=== PATIENT | female | born 1995 | race Caucasian/White ===

== ENCOUNTER → 2016-08-01 | Outpatient (CLI) | payer BC ==
[~2016-08-01] MED LIST: ACET-749 PO; AMPH25CA PO; BCPILLS PO; FEXO1TAB49 PO
[2016-08-04 11:39] LABS: CHLAMYDIA TRACH RNA*** NOT DETECTED (NOT DETECTED); GC (NEIS GONORRHOEAE)RNA** NOT DETECTED (NOT DETECTED)
== END | disposition home or self-care (01) ==
LOC: C.LABSPEC 17:32
PROVIDERS: ATTEND Physician Assistant
DX: N89.8 Other specified noninflammatory disorders of vagina (principal)

== ENCOUNTER 2016-12-15 04:00 | Emergency (ER) | payer BC ==
[~2016-12-15] VITALS: Ht 167.6 cm; Wt 80.0 kg
[~2016-12-15 04:00] MED LIST changes: -AMPH25CA PO; -BCPILLS PO; -FEXO1TAB49 PO
[2016-12-15 04:04] VITALS: BP 111/70; PULSE 107; TEMP 36.8; O2SAT 96; Ht 167.6 cm; Wt 80.0 kg
[2016-12-15] MEDS ORDERED: BCPILLS PO (04:30)
[2016-12-15] MEDS ORDERED: AMPH25CA PO (04:30)
[2016-12-15] MEDS ORDERED: FEXO1TAB49 PO (04:30)
--- NOTE | 2016-12-15 06:49 | DIAGNOSTIC IMAGING REPORT ---
L FOOT MIN 3 VIEWS ROUTINE CLINICAL HISTORY: Left foot pain status post trauma COMPARISON: None. DISCUSSION: No acute fractures or dislocations are visualized. There is mild cortical thickening involving the midshaft of the second metatarsal. This is likely chronic stress related basis. IMPRESSION: 1. No acute fractures or dislocations 2. Mild cortical thickening involving the second metatarsal, likely on a chronic stress related basis Electronically signed by: Mckay Guaman M.D. 12/15/2016 6:47 AM Dictated Date/Time: 12/15/2016 6:47 AM
--- NOTE | 2016-12-15 06:54 | DIAGNOSTIC IMAGING REPORT ---
L ANKLE MIN 3 VIEWS ROUTINE CLINICAL HISTORY: Left ankle pain status post trauma COMPARISON: None. DISCUSSION: No acute fractures or dislocations are visualized. IMPRESSION: No acute fractures or dislocations are visualized. Electronically signed by: Mckay Guaman M.D. 12/15/2016 6:53 AM Dictated Date/Time: 12/15/2016 6:52 AM
--- NOTE | 2016-12-15 07:20 | EMERGENCY ROOM VISIT NOTE ---
History Report prepared by Joyce: Lola Mcneal Under the Supervision of: Dr. Lucita Huff M.D. First contact with patient: 04:08 Chief Complaint: FOOT PAIN Stated Complaint: LT FOOT INJURY History of Present Illness The patient is a 21 year old female who presents to the Emergency Room with complaints of an episode of foot pain starting a few hours ago. The patient states that she was at a [employer] and was walking down the stairs when she stepped wrong. She reports that she instantly got pain all throughout her foot and cannot walk on it. The patient states that the pain is worse with movement. She states that she took Advil with some relief. She notes that she was wearing converse shoes. She admits she was drinking. The patient denies any falls, trauma, and chance of . She notes she takes Adderall and Control. Source of History: patient Onset: a few hours ago Position: foot Timing: other (episode) Modifying Factors (Worsening): movement Modifying Factors (Relieving): other (Advil) Note: The patient denies any falls, trauma, and chance of . Review of Systems See HPI for pertinent positives & negatives. A total of 6 systems reviewed and were otherwise negative. Past Medical & Surgical Surgical Problems: (1) H/O wisdom tooth extraction Family History Patient reports no known family medical history. Social History Smoking Status: Never Smoker Alcohol Use: occasionally Marital Status: single Housing Status: lives with roommate Occupation Status: [employer] Current/Historical Medications Scheduled Amphetamine-Dextroamphetamine 25MG (Adderall Xr 25MG), 25 MG PO DAILY Control Pills ( Control Pills), 1 TAB PO DAILY Fexofenadine Hcl (Donna Allergy), 1 TAB PO DAILY Allergies Coded Allergies: POLLEN (Verified Allergy, Intermediate, ITCHY EYES, SNEEZING, RUNNY NOSE, 12/15/16) Physical Exam Vital Signs Date Time Temp Pulse Resp B/P (MAP) Pulse Ox O2 Delivery O2 Flow Rate FiO2 12/15/16 04:04 36.8 107 20 111/70 96 Room Air Physical Exam Vital signs reviewed. General: Well-appearing, in no significant distress. Musculoskeletal: Atraumatic, no peripheral edema. Tender to palpation over the fifth metatarsal proximally. Tender over the first metatarsal distally. no significant swelling or ecchymosis is appreciated. Neurologic: Patient awake alert and oriented x 3 Skin: Warm, dry, no rash, atraumatic. Medical Decision & Procedures ER Provider Diagnostic Interpretation: Radiology results as stated below per my review and radiologist interpretation: ANKLE AND FOOT 3 VIEWS: Findings: The results were interpreted by me. Negative for acute fracture or dislocation. ED Course 0418: Past medical records reviewed. The patient was evaluated in room B10. A complete history and physical examination was performed. 0507: Upon reevaluation, the patient appeared to have improvement of her symptoms. I discussed findings with the patient. She verbalized agreement of the treatment plan. The patient was discharged home. Medical Decision Etiologies such as fracture, dislocation, neurovascular compromise, compartment syndrome, soft tissue injury, as well as others were entertained. This pt was evaluated and appeared to be in no distress. XR of the left foot and ankle are negative for acute fracture to my interpretation. Pt was placed in a walking shoe. She was advised to f/u with PCP if symptoms persist for repeat imaging. She will use ibuprofen for pain. Pt will return to the ED for worsening of symptoms or any medical concerns. Impression Primary Impression: Sprain of left foot Scribe Attestation The scribe's documentation has been prepared under my direction and personally reviewed by me in its entirety. I confirm that the note above accurately reflects all work, treatment, procedures, and medical decision making performed by me. Departure Information Dispostion Home / Self-Care Referrals No Doctor, Assigned (PCP) Forms HOME CARE DOCUMENTATION FORM, IMPORTANT VISIT INFORMATION Patient Instructions My [facility] Additional Instructions Diagnosis: Left foot sprain Ibuprofen 600 mg every 6 hours as needed for pain with food. Ice and elevate intermittently for the next 24 hours. If pain persists, follow-up with orthopedic surgery or your primary care physician for repeat imaging. Return to the emergency department for worsening of symptoms or any medical concerns.
== END 2016-12-15 05:04 | disposition home or self-care (01) ==
LOC: C.EDB 04:01
DX: S93.602A Unspecified sprain of left foot, initial encounter (principal); X58.XXXA Exposure to other specified factors, initial encounter; Z79.899 Other long term (current) drug therapy; Z91.09 Other allergy status, other than to drugs and biological substances

== ENCOUNTER → 2017-01-26 | Outpatient (CLI) | payer BC ==
[~2017-01-26] MED LIST changes: -ACET-749 PO; +AMPH25CA PO; +BCPILLS PO; +FEXO1TAB49 PO
[2017-01-26 13:23] LABS: BASO % 0.2 %; BASO ABS # 0.02 K/uL (0-0.2); COMPLETE YES; EOS % 1.7 %; HEMATOCRIT 40.6 % (37-47); IG% 0.1 %; LYMPH % 11.1 %; LYMPH ABS # 0.96 K/uL (1.2-3.4); MEAN CELL VOLUME 88.6 fL (80-100); MEAN CORPUSCULAR HEMOGLOBIN 28.4 pg (25-34); MEAN PLATELET VOLUME 9.9 fL (7.4-10.4); MONO % 5.7 %; NEUT % 81.2 %; PLATELET COUNT 375 K/uL (130-400); RED BLOOD COUNT 4.58 M/uL (4.2-5.4); WHITE BLOOD COUNT 8.66 K/uL (4.8-10.8)
[2017-01-26 14:11] LABS: FERRITIN 35.8 ng/ml (8.0-388.0); THYROID STIMULATING HORMONE 1.16 uIu/ml (0.300-4.500)
== END | disposition home or self-care (01) ==
LOC: C.LAB1850 11:26
PROVIDERS: ATTEND Physician Assistant Medical
DX: D64.9 Anemia, unspecified (principal)

== ENCOUNTER → 2017-06-06 | Outpatient (CLI) | payer OTHER | END | disposition home or self-care (01) | LOC: C.LABSPEC 11:11 | PROVIDERS: ATTEND Family Medicine | DX: J03.00 Acute streptococcal tonsillitis, unspecified (principal) ==